=== PATIENT | female | born 1955 | race Caucasian/White ===

== ENCOUNTER → 2017-06-29 08:24 | Outpatient (CLI) | payer OTHER, SELFPAY ==
--- NOTE | 2017-06-29 08:31 | MM_ITS ---
MM Dig screening mamm BI w/CAD CAD Screening ORDERING PHYSICIAN : Petty Garcia MD PATIENT AGE: 62 years GENDER: Female COMPARISON: Digital mammogram.: .. September 2014 :March 2008film screen mammogram INDICATION: Routine screening. No hormones. No new complaints. Family history. Noncontributory TECHNIQUE: Standard CC and MLO images were obtained. Additional nipple profile views included bilaterally R2 CAD reviewed. FINDINGS: Low-density breast with fatty replacement bilaterally. No significant new areas of concern when compared to previous studies No dominant mass nor suspicious calcification. . IMPRESSION: Negative, stable bilateral mammogram Low-density breast with no areas of concern.. BI-RADS Category: 1 Negative RECOMMENDED FOLLOW-UP: 1YR - 1 YEAR FOLLOW-UP (A letter has been sent to the patient regarding results of the study.) .
--- NOTE | 2017-06-29 08:32 | XR_ITS ---
XR DEXA axial skeleton HISTORY: ITS.REASON: POST MENOPAUSAL ORDERING PHYSICIAN: Petty Garcia MD PATIENT AGE: 62 years COMPARISON: 10/15/2014 FINDINGS: The BMD measured at the left femoral neck is 0.946 g/cm squared with a T score of -0.7. This is considered NORMAL according to the World Health Organization criteria. Fracture risk is LOW. Treatment is advised. L1 L4 density has a T score of -0.3 which is within normal limits. The bone density of the L spine has decreased by 10% in the bone density of the hips has decreased by 6% compared to the previous exam IMPRESSION: Normal bone density. Recommend follow-up exam june 2019
== END ==
PROVIDERS: Family Provider Family Medicine; PCP Family Medicine; Visit Provider Family Medicine
DX: Z12.31 Encounter for screening mammogram for malignant neoplasm of breast (principal); Z78.0 Asymptomatic menopausal state; Z13.820 Encounter for screening for osteoporosis
CPT/HCPCS: 77067; 77080

== ENCOUNTER → 2018-03-28 10:33 | Outpatient (CLI) | payer OTHER, SELFPAY ==
[2018-03-28 12:29] LABS: Alanine Aminotransferase 29 U/L (12-78); Albumin Level 3.8 gm/dL (3.4-5.0); Albumin/Globulin Ratio 1.3 (1.1-1.8); Alkaline Phosphatase 96 U/L (46-116); Anion Gap 15.5 mEq/L (5-15); Aspartate Amino Transferase 11 U/L (15-37); Bilirubin,Total 0.3 mg/dL (0.2-1.0); Blood Urea Nitrogen 14 mg/dL (7-18); Calcium 9.1 mg/dL (8.5-10.1); Carbon Dioxide 30 mmol/L (21.0-32.0); Chloride 98 mmol/L (98-107); Chol/HDL Ratio 3.3 (1-3.5); Cholesterol 108 mg/dL (140-200); Creatinine,Serum 0.76 mg/dL (0.55-1.02); Estimated Glomerular Filt Rate 77 ml/min (>60); GFR (African American) 93 ML/MIN (>60); Globulin 2.9 gm/dl (1.3-3.2); Glucose 149 mg/dL (74-106); HDL Cholesterol 33 mg/dL (29-89); LDL Cholesterol 45 mg/dL (0-130); Potassium 4.5 mmoL/L (3.5-5.1); Sodium 139 mmol/L (136-145); Total Protein,Serum 6.7 gm/dL (6.4-8.2); Triglycerides 148 mg/dL (30-200); VLDL Cholesterol 30 mg/dL (0-40)
[2018-03-28 13:17] LABS: Hemoglobin A1C 6.9 % (0.0-7.0)
[2018-03-29 13:07] LABS: Thyroid Stimulating Hormone 3.43 uIU/ml (0.358-3.740)
== END ==
PROVIDERS: Visit Provider Physician Assistant
DX: E03.9 Hypothyroidism, unspecified (principal); E11.9 Type 2 diabetes mellitus without complications; E78.5 Hyperlipidemia, unspecified
CPT/HCPCS: 36415; 80053; 80061; 83036; 84443

== ENCOUNTER → 2020-02-12 09:39 | Outpatient (CLI) | payer BC, MEDICARE, SELFPAY ==
--- NOTE | 2020-02-12 09:54 | MM_ITS ---
PROCEDURE: MM DIG SCREENING MAMM BI W/CAD Digital Breast Tomosynthesis Included CLINICAL INDICATION: SCREENING There is no personal or family history of breast cancer. COMPARISON: MG DIGMAMMS MAMMOGRAM SCREEN-NUCLEAR MONITORING TECHNICIAN N/C from 04/08/2008 MG DMSB DIG MAMM-SCREEN SUSHILA from 10/15/2014 MG SCBI MM Dig screening mamm BI w/CAD from 06/29/2017 TECHNIQUE: Standard CC and MLO images and 3D Tomosynthesis was obtained. R2 CAD reviewed. FINDINGS: Scattered fibroglandular densities are seen in both breasts. There are no CAD markings. There are couple of benign-appearing microcalcifications in each breast. There is no suspicious lesion in either breast and no suspicious microcalcifications. IMPRESSION: Fibrofatty parenchyma with no suspicious lesions seen BI-RAD Category: 2 Benign Finding(s) FOLLOW-UP: 1YR 1 Year Follow-up (A letter has been sent to the patient regarding results of the study.) Dictated by: Dr. Ollie Weber MD 02/16/2020 16:59 Dr. Ollie Weber MD in [place] 02/16/2020 16:59
--- NOTE | 2020-02-12 09:55 | XR_ITS ---
PROCEDURE: XR DEXA AXIAL SKELETON CLINICAL HISTORY: POST MENOPAUSAL COMPARISON: CR DEXAAX XR DEXA axial skeleton from 06/29/2017 FINDINGS: The right hip BMD is 0.755 with a T-score of -0.9. The left hip BMD is 0.892 with a T-score of -0.4. The lumbar spine BMD is 1.027 with a T-score of -0.2. Previously the lowest density was in the left femoral neck with a T-score -0.7 IMPRESSION: This patient is considered normal according to the World Health Organization criteria. Fracture risk is low. Based on these results a follow-up exam is recommended in 2 year. Dictated by: Deandre Hernandez MD 02/13/2020 17:27 Deandre Hernandez MD in [place] 02/13/2020 17:27
== END ==
PROVIDERS: PCP Family Medicine; Visit Provider Physician Assistant
DX: Z12.31 Encounter for screening mammogram for malignant neoplasm of breast (principal); Z78.0 Asymptomatic menopausal state
CPT/HCPCS: 77063; 77067; 77080

== ENCOUNTER → 2021-06-15 08:01 | Outpatient (CLI) | payer MEDICARE, SELFPAY ==
--- NOTE | 2021-06-15 08:09 | MM_ITS ---
PROCEDURE INFORMATION: Exam: MG Bilateral Screening 3D Mammography Exam date and time: 06/15/2021 8:11 AM Age: 66 years old Clinical indication: Screening examination. No family history of breast cancer. TECHNIQUE: Imaging protocol: Bilateral Screening tomosynthesis and 2D mammography including computer-aided detection (CAD) when performed. COMPARISON: 1. MG MM DIG SCREENING MAMM BI W/CAD 02/12/2020 9:56 AM 2. MG SCBI MM Dig screening mamm BI w/CAD 06/29/2017 8:47 AM 3. MG DMSB DIG MAMM-SCREEN SUSHILA 10/15/2014 8:36 AM 4. MG DIGMAMMS MAMMOGRAM SCREEN-WELT MAKER N/C 04/08/2008 8:53 AM FINDINGS: MAMMOGRAPHY: Breast composition: There are scattered areas of fibroglandular density. Architectural distortion: None. Calcifications: No suspicious calcifications. Asymmetric density: No developing asymmetry. Skin thickening: None. Axillary adenopathy: None. IMPRESSION: No mammographic evidence of malignancy. Annual screening is recommended unless otherwise clinically indicated. ASSESSMENT: BI-RADS Category 1: Negative
== END ==
PROVIDERS: PCP Family Medicine; Visit Provider Physician Assistant
DX: Z12.31 Encounter for screening mammogram for malignant neoplasm of breast (principal)
CPT/HCPCS: 77063; 77067

== ENCOUNTER → 2021-06-22 09:59 | Outpatient (CLI) | payer MEDICARE, SELFPAY ==
[2021-06-22 10:54] LABS: Hemoglobin A1C 6.8 % (4.0-6.0)
[2021-06-22 11:26] LABS: Alanine Aminotransferase 24 U/L (12-78); Albumin Level 4.4 g/dl (3.5-5.0); Albumin/Globulin Ratio 2.1 (1.1-1.8); Alkaline Phosphatase 78 U/L (38-126); Anion Gap 11.3 mEq/L (5-15); Aspartate Amino Transferase 22 U/L (14-36); Bilirubin,Total 0.3 mg/dl (0.2-1.3); Blood Urea Nitrogen 15 mg/dl (7-17); Calcium 9.3 mg/dl (8.4-10.2); Carbon Dioxide 33 mmol/L (22.0-30.0); Chloride 96 mmol/L (98-107); Chol/HDL Ratio 3.4 (1-3.5); Cholesterol 124 mg/dl (140-200); Estimated Glomerular Filt Rate 83 ml/min (>60); GFR (African American) 101 ML/MIN (>60); Globulin 2.1 g/dL (1.3-3.2); Glucose 130 mg/dl (74-100); HDL Cholesterol 37 mg/dl (40-60); Potassium 4.3 mmoL/L (3.5-5.1); Sodium 136 mmol/L (136-145); Total Protein,Serum 6.5 g/dl (6.3-8.2); Triglycerides 223 mg/dl (30-150); VLDL Cholesterol 45 mg/dL (0-40)
[2021-06-22 11:41] LABS: Free T4 (Free Thyroxine) 1.15 ng/dl (0.78-2.19)
[2021-06-22 11:57] LABS: Thyroid Stimulating Hormone 3.06 uIU/mL (0.465-4.68)
== END ==
PROVIDERS: Visit Provider Physician Assistant
DX: E11.9 Type 2 diabetes mellitus without complications (principal); E78.5 Hyperlipidemia, unspecified; E03.9 Hypothyroidism, unspecified; I10 Essential (primary) hypertension; Z79.84 Long term (current) use of oral hypoglycemic drugs
CPT/HCPCS: 36415; 80053; 80061; 83036; 84439; 84443

== ENCOUNTER 2023-11-07 07:10 | Outpatient (CLI) | payer MEDICARE, SELFPAY ==
--- NOTE | 2023-11-07 07:21 | MM_ITS ---
PROCEDURE INFORMATION: Exam: MG Bilateral Screening 3D Mammography Exam date and time: 11/07/2023 7:48 AM Age: 68 years old Clinical indication: Screening examination TECHNIQUE: Imaging protocol: Bilateral Screening tomosynthesis and 2D mammography including computer-aided detection (CAD) when performed. COMPARISON: 1. MG MM DIG SCREENING MAMM BI W/CAD 06/15/2021 8:11 AM 2. MG MM DIG SCREENING MAMM BI W/CAD 02/12/2020 9:56 AM FINDINGS: MAMMOGRAPHY: Breast composition: There are scattered areas of fibroglandular density. Mass: None. Architectural distortion: None. Calcifications: No suspicious calcifications. Asymmetric density: None. Skin thickening: None. Axillary adenopathy: None. IMPRESSION: No mammographic evidence of malignancy. Annual screening is recommended unless otherwise clinically indicated. ASSESSMENT: BI-RADS Category 1: Negative.
--- NOTE | 2023-11-07 07:21 | CT_ITS ---
FINAL REPORT TECHNIQUE: Thin section axial images were obtained through the lungs using a low-dose technique per lung cancer screening protocol. Reconstruction images were obtained using the axial data. Exam was performed using dose reduction technique. CLINICAL HISTORY: SCREENING current smoker 1ppd x 55 yrs COMPARISON: None FINDINGS: CTDLvol: 2.9 DLP: 98.21 69-year-old female, current smoker 55 pack year history Lungs: No acute pulmonary abnormality. No suspicious nodules. Lymph nodes: No thoracic lymphadenopathy. Mediastinum: Heart size is normal. Prominent coronary artery calcifications are present. Pleura/pericardium: No pleural or pericardial effusion. Other: No acute abnormality in the upper abdomen. IMPRESSION: No suspicious pulmonary nodule or mass. Lung RADS: 1S, the S designation for the prominent coronary artery calcifications. Recommendation: 12-month follow-up LDCT Reviewed, Interpreted and Dictated by Lin Keenan MD Transcribed by Talia Reynolds Authenticated and [facility]
--- NOTE | 2023-11-07 07:21 | XR_ITS ---
FINAL REPORT TECHNIQUE: Bone densitometry calculations of the lumbar spine and left hip were obtained. CLINICAL HISTORY: .screening COMPARISON: None FINDINGS: Using L1-4, the bone mineral density of the spine is 1.020 g/cm2, corresponding to T-score of -0.2 and a Z score of 1.8. This is within the range of normal. Using the left hip, the bone mineral density of the femoral neck is 0.896 g/cm2, corresponding to a T-score of -0.4 and a Z-score of 1.1. This is within the range of normal. NOTE: T-score: Standard deviation compared with peak bone mass of young adult mean. *Following the recommendations of the International Society of Bone densitometry, classification of hip BMD is based on the lower of two T-scores; total hip or femoral neck. IMPRESSION: 1. Bone mineral density of the lumbar spine within the range of normal. 2. Bone mineral density of the left femoral neck within the range of normal. Reviewed, Interpreted and Dictated by Lin Keenan MD Transcribed by Talia Reynolds Authenticated and [facility]
== END 2023-11-07 23:59 | disposition home or self-care (01) ==
LOC: RAD 07:10
PROVIDERS: PCP Physician Assistant; Visit Provider Physician Assistant
DX: M81.0 Age-related osteoporosis without current pathological fracture (principal); Z12.31 Encounter for screening mammogram for malignant neoplasm of breast; Z87.891 Personal history of nicotine dependence
CPT/HCPCS: 71271; 77063; 77067; 77080

== ENCOUNTER 2024-02-02 13:12 | Outpatient (CLI) | payer MEDICARE, SELFPAY ==
--- NOTE | 2024-02-02 13:17 | XR_ITS ---
FINAL REPORT CLINICAL HISTORY: ganglion cyst finger FINDINGS: LEFT HAND Three views demonstrate no acute fracture or dislocation. There is severe degenerative changes at the first carpometacarpal joint. The visualized joint spaces are normally aligned. There is soft tissue swelling at the third PIP joint, mass not excluded. IMPRESSION: Soft tissue swelling at the PIP joint, mass not excluded. If indicated, MRI could further evaluate. Reviewed, Interpreted and Dictated by Sarbjit Horner III, MD Transcribed by Shoshana Saucedo Authenticated and [facility]
== END 2024-02-02 23:59 | disposition home or self-care (01) ==
LOC: RAD 13:14
PROVIDERS: PCP Family Medicine; Visit Provider Physician Assistant
DX: M67.442 Ganglion, left hand (principal)
CPT/HCPCS: 73130

== ENCOUNTER 2024-11-08 14:36 | Outpatient (CLI) | payer MEDICARE, SELFPAY ==
--- NOTE | 2024-11-08 14:40 | MM_ITS ---
PROCEDURE INFORMATION: Exam: MG Bilateral Screening 3D Mammography Exam date and time: 11/08/2024 2:55 PM Age: 69 years old Clinical indication: Screening examination TECHNIQUE: Imaging protocol: Bilateral Screening tomosynthesis and 2D mammography including computer-aided detection (CAD) when performed. COMPARISON: 1. MG MM DIG SCREENING MAMM BI W/CAD 11/07/2023 7:48 AM 2. MG MM DIG SCREENING MAMM BI W/CAD 06/15/2021 8:11 AM FINDINGS: MAMMOGRAPHY: Breast composition: There are scattered areas of fibroglandular density. Mass: None. Architectural distortion: None. Calcifications: No suspicious calcifications. Asymmetric density: None. Skin thickening: None. Axillary adenopathy: None. IMPRESSION: No mammographic evidence of malignancy. Annual screening is recommended unless otherwise clinically indicated. ASSESSMENT: BI-RADS Category 1: Negative.
--- NOTE | 2024-11-08 14:40 | CT_ITS ---
FINAL REPORT CLINICAL HISTORY: SCREENING. Currently smokes 1 ppd x54 yrs. Exposure to second hand smoke. COMPARISON: 11/07/2023 FINDINGS: CT CHEST LOW DOSE SCREENING HISTORY: Screening exam for lung cancer. 69-year-old female, current smoker, [id number] history. DOSE: CTDI vol: 2.90 mGy, DLP: 97.42 mGy*cm TECHNIQUE: Axial CT without IV contrast administration using low dose protocol. This study was performed with techniques to keep radiation doses as low as reasonably achievable, (ALARA). Individualized dose reduction techniques using automated exposure control or adjustment of mA and/or kV according to the patient's size were employed. No acute lung disease is present. No pulmonary lesions are seen suspicious for neoplasm. There is evidence of old granulomatous disease. No pleural or pericardial effusion is seen. No adenopathy or mass lesion is present. IMPRESSION: No evidence of lung cancer LUNG RADS CATEGORY 1 RECOMMENDATION: 12 month LDCT follow up Reviewed, Interpreted and Dictated by Petty Mahan MD Transcribed by Talia Reynolds Authenticated and [facility]
== END 2024-11-08 23:59 | disposition home or self-care (01) ==
LOC: RAD 14:37
PROVIDERS: PCP Family Medicine; Visit Provider Physician Assistant
DX: Z12.31 Encounter for screening mammogram for malignant neoplasm of breast (principal); R92.323 Mammographic fibroglandular density, bilateral breasts; Z12.2 Encounter for screening for malignant neoplasm of respiratory organs; F17.210 Nicotine dependence, cigarettes, uncomplicated; J98.4 Other disorders of lung
CPT/HCPCS: 71271; 77063; 77067